=== PATIENT | female | born 1960 | race Caucasian/White ===

== ENCOUNTER 2016-05-26 12:24 | Outpatient (CLI) | payer BC | END 2016-05-26 12:25 | disposition home or self-care (01) | DX: E78.1 Pure hyperglyceridemia (principal) ==

== ENCOUNTER 2017-01-19 08:00 | Outpatient (CLI) | payer BC ==
[2017-01-19 13:09] LABS: CALCIUM 9.5 mg/dL (8.5-10.3); POTASSIUM 3.5 mmol/L (3.5-5.0)
[2017-01-19 13:46] LABS: ALBUMIN/GLOBULIN RATIO 1.3 (1.0-2.2); BILIRUBIN,TOTAL 1.5 mg/dL (0.2-1.0); CREATININE 0.8 mg/dL (0.4-1.0); TOTAL PROTEIN 7.5 g/dL (6.7-8.2)
== END 2017-01-19 08:01 | disposition home or self-care (01) ==
LOC: LAB.WCP 08:00
PROVIDERS: ATTEND Family Medicine
DX: R94.5 Abnormal results of liver function studies (principal)
CPT/HCPCS: 36415; 80053; 82977; 86704; 86803; 87340

== ENCOUNTER 2017-02-10 15:32 | Outpatient (CLI) | payer BC ==
--- NOTE | 2017-02-12 10:11 | Mammography Report ---
DIGITAL BILATERAL SCREENING MAMMOGRAM: 02/10/2017 COMPARISON STUDY: Mammogram 10/19/2015. INDICATION: Screening mammography. TECHNIQUE: Routine CC and MLO projections were obtained of the breasts. FINDINGS: Scattered fibroglandular tissue is present within the breasts. There are no dominant randi s, suspicious microcalcifications, or secondary signs of malignancy. In comparison to the previous st udies, there are no significant changes. ASSESSMENT: NO MAMMOGRAPHIC EVIDENCE OF MALIGNANCY. NO SIGNIFICANT INTERVAL CHANGES. RECOMMENDATION: Screening mammography is recommended annually. BIRADS category 1 - negative. STANDARD QUALIFYING STATEMENTS 1. This examination was reviewed with the aid of Computed-Aided Detection (CAD). 2. A negative or benign imaging report should not delay biopsy if clinically suspicious findings are present. Consider surgical consultation if warranted. More than 5% of cancers are not identified by i maging. 3. Dense breasts may obscure an underlying neoplasm. JOB #: [id number] EXT JOB #:[id number]
== END 2017-02-10 15:33 | disposition home or self-care (01) ==
LOC: DI 15:32
PROVIDERS: ATTEND Family Medicine
DX: Z12.31 Encounter for screening mammogram for malignant neoplasm of breast (principal)
CPT/HCPCS: 77067

== ENCOUNTER 2017-02-16 15:11 | Outpatient (CLI) | payer BC | END 2017-02-16 15:12 | disposition home or self-care (01) | LOC: SC 15:11 | PROVIDERS: ATTEND Nurse Practitioner Family | DX: G47.30 Sleep apnea, unspecified (principal); R53.83 Other fatigue; G47.8 Other sleep disorders; R06.83 Snoring; G47.00 Insomnia, unspecified | CPT/HCPCS: 99203; 99212 ==

== ENCOUNTER 2017-05-14 10:16 | Day surgery (SDC) | payer BC ==
[~2017-05-14 10:16] MED LIST: ONDANSETRON 4 MG/2 ML VIAL ONE
[2017-05-14] MEDS ORDERED: LACTATED RINGERS 1,000 ML IV ONE (10:50)
[2017-05-14] MEDS ORDERED: MIDAZOLAM 2 MG/2 ML VIAL IVP ONE (12:40)
[2017-05-14] MEDS ORDERED: fentaNYL 100 MCG/2 ML VIAL IVP ONE (12:40)
[2017-05-14 14:09] VITALS: BP 126/70
== END 2017-05-14 10:17 | disposition home or self-care (01) ==
LOC: SDS 10:16
PROVIDERS: ATTEND Surgery
PROC: 0DBM8ZX Excision of Descending Colon, Via Natural or Artificial Opening Endoscopic, Diagnostic (ICD-10-PCS; principal; 2017-05-14 11:45)
DX: K57.30 Diverticulosis of large intestine without perforation or abscess without bleeding (principal); K64.8 Other hemorrhoids; K63.5 Polyp of colon
CPT/HCPCS: 45380; J7120

== ENCOUNTER 2017-05-20 15:07 | Outpatient (CLI) | payer BC | END 2017-05-20 15:08 | disposition home or self-care (01) | LOC: SC 15:07 | PROVIDERS: ATTEND Nurse Practitioner Family | DX: G47.30 Sleep apnea, unspecified (principal) | CPT/HCPCS: 99212; 99213 ==

== ENCOUNTER 2017-05-22 16:32 | Outpatient (CLI) | payer OTHER, BC ==
--- NOTE | 2017-05-23 16:18 | MRI Report ---
EXAM: MRI LUMBAR SPINE WITHOUT CONTRAST EXAM DATE: 05/22/2017 05:58 PM. CLINICAL HISTORY: Strain of muscle, fascia and tendon of lower back. COMPARISON: None. TECHNIQUE: Multiplanar, multisequence T1-weighted and fluid-sensitive sequences of the lumbar spine f rom T12 to S1 without contrast. Other: None. FINDINGS: There is straightening of the normal lumbar lordosis. The conus terminates at L1-L2 and is normal. There is Modic type I endplate degenerative change in the superior endplate of T12. There is a marked decrease in the height of the disk at T11-T12 with associated desiccation. There is a grade 1 nellie listhesis of L3 on L4 with associated mild decrease in the height of the disk and desiccation. There is a minimal decrease in the height of the disk at L4-L5 with a minimal to mild degree of desiccation . The abdominal aorta is of normal caliber. The kidneys are without evidence of hydronephrosis. There i s no significant atrophy of the paraspinal musculature or the psoas musculature. L1-L2: There is no significant disk bulge, central or foraminal stenosis. There is minimal right-side d facet arthropathy. L2-L3: There is a punctate hyperintensity associated with the facet on the right side at L2-L3 likely reflecting a minimal synovial cyst. Otherwise remainder of the level is normal. L3-L4: There is a grade 1 anterolisthesis of L3 on L4. There is a minimal pseudo-bulge abutting the s ac producing a minimal central canal stenosis. There is minimal bilateral facet arthropathy. There is mild neural foraminal narrowing bilaterally. L4-L5: There is a grade 1 anterolisthesis of L4 on L5. There is a minimal pseudobulge abutting the sa c producing a minimal central canal stenosis. There is mild bilateral facet arthropathy. There is mil d neural foraminal narrowing bilaterally. L5-S1: There is minimal right facet arthropathy. There is no significant foraminal stenosis. IMPRESSION: 1. There is a grade 1 anterolisthesis of L3 on L4 with associated minimal pseudobulge producing a min imal central canal stenosis. 2. Likewise, there is a grade 1 anterolisthesis of L4 on L5 with minimal pseudobulge producing a mini mal central canal stenosis. Comment: The following findings are so common in adults without low back pain that while we report th eir presence, they must be interpreted with caution and in the context of the clinical situation. (Re laci Hunter et al, Spine 2001) Prevalence of findings in patients without low back pain: Disk degeneration (any evidence): 92% Disk desiccation/T2 signal loss: 83% Disk height loss: 56% Disk bulge: 64% Disk protrusion: 32% Annular tear/high intensity zone: 38% [facility] Referring Provider Line: [phone] SITE ID: [id number]
== END 2017-05-22 16:33 | disposition home or self-care (01) ==
LOC: DI 16:32
PROVIDERS: ATTEND Family Medicine
DX: S39.012D Strain of muscle, fascia and tendon of lower back, subsequent encounter (principal); M47.896 Other spondylosis, lumbar region; M47.897 Other spondylosis, lumbosacral region; M43.16 Spondylolisthesis, lumbar region; M51.86 Other intervertebral disc disorders, lumbar region
CPT/HCPCS: 72148

== ENCOUNTER 2019-10-17 07:32 | Outpatient (CLI) | payer BC ==
[2019-10-17 12:49] LABS: BASOPHILS # (AUTO) 0.1 10^3/uL (0.0-0.1); BASOPHILS % (AUTO) 0.8 %; EOSINOPHILS # (AUTO) 0.2 10^3/uL (0.0-0.7); HGB - HEMOGLOBIN 14.3 g/dL (12.0-16.0); LYMPHOCYTES # (AUTO) 2.4 10^3/uL (1.5-3.5); LYMPHOCYTES % (AUTO) 29.7 %; MEAN CORPUSCULAR HEMOGLOBIN 30.1 pg (27.0-31.0); MEAN CORPUSCULAR HGB CONC 32.1 g/dL (32.0-36.0); MEAN CORPUSCULAR VOLUME 93.7 fL (81.0-99.0); MEAN PLATELET VOLUME 10.4 fL (7.9-10.8); MONOCYTES # (AUTO) 0.6 10^3/uL (0.0-1.0); MONOCYTES % (AUTO) 7.3 %; NEUTROPHILS # (AUTO) 4.7 10^3/uL (1.5-6.6); NEUTROPHILS % (AUTO) 58.8 %; PLT - PLATELET COUNT 274 10^3/uL (130-450); RED BLOOD COUNT 4.75 10^6/uL (4.20-5.40); RED CELL DISTRIBUTION WIDTH 12.6 % (12.0-15.0)
[2019-10-17 13:02] LABS: ALBUMIN 4.2 g/dL (3.2-5.5); ALBUMIN/GLOBULIN RATIO 1.3 (1.0-2.2); BILIRUBIN,TOTAL 0.7 mg/dL (0.2-1.0); CREATININE 0.7 mg/dL (0.4-1.0); TOTAL PROTEIN 7.4 g/dL (6.7-8.2)
== END 2019-10-17 23:59 | disposition home or self-care (01) ==
LOC: LAB.WCP 07:32
PROVIDERS: ATTEND Family Medicine
DX: R94.5 Abnormal results of liver function studies (principal)
CPT/HCPCS: 36415; 80053; 85025

== ENCOUNTER 2019-10-26 15:00 | Outpatient (CLI) | payer BC | END 2019-10-26 23:59 | disposition home or self-care (01) | LOC: LAB.WCP 15:00 | PROVIDERS: ATTEND Family Medicine | DX: Z00.00 Encounter for general adult medical examination without abnormal findings (principal); Z11.59 Encounter for screening for other viral diseases | CPT/HCPCS: 81599 ==

== ENCOUNTER 2020-02-13 14:45 | Outpatient (CLI) | payer BC ==
--- NOTE | 2020-02-14 15:48 | Mammography Report ---
BILATERAL DIGITAL SCREENING MAMMOGRAM 3D/2D: 02/13/2020 CLINICAL: Routine screening. Comparison is made to exams dated: 02/10/2017 mammogram, 10/19/2015 mammogram, and 10/17/2014 mammogram - [facility]. The tissue of both breasts is predominantly fatty. No significant masses, calcifications, or other findings are seen in either breast. There has been no significant interval change. IMPRESSION: NEGATIVE There is no mammographic evidence of malignancy. A 1 year screening mammogram is recommended. This exam was interpreted at Station ID: [id number]. NOTE: For mammograms, a report in lay terms will be sent to the patient. Approximately 15% of breast malignancies will not be visualized mammographically. In the management of a palpable breast mass, a negative mammogram must not discourage biopsy of a clinically suspicious lesion. Electronically Signed By: Jenae cole/penrad:02/13/2020 16:55:02 ACR BI-RADS Category 1: Negative 3341F PARENCHYMAL PATTERN: (F) - The breast(s) demonstrate(s) diffuse fatty replacement. BI-RADS CATEGORY: (1) - 1 RECOMMENDATION: (ANNUAL) - Recommend routine annual screening mammography. [id number] 1 year screening LATERALITY: (B)
== END 2020-02-13 14:46 | disposition home or self-care (01) ==
LOC: DI.N 14:45
DX: Z12.31 Encounter for screening mammogram for malignant neoplasm of breast (principal)
CPT/HCPCS: 77063; 77067

== ENCOUNTER 2020-03-16 15:15 | Emergency (ER) | payer BC ==
[2020-03-16] MEDS ORDERED: HYDROcod/ACETAM 5/325 MG TABLET PO STA (15:39)
--- NOTE | 2020-03-16 15:51 | ED Physician Documentation ---
PD HPI UPPER EXT INJURY - Stated complaint Stated Complaint: GLF/LT ARM PX - Chief complaint Chief Complaint: Trauma Ext - History obtained from History obtained from: Patient - History of Present Illness Location: Left, Shoulder Type of injury: Fall Where injury occurred: Home Timing - onset: How many days ago (2) Timing - duration: Days (2) Timing - details: Gradual onset Pain level max: 8 Pain level now: 8 Improved by: Rest, Ice, Immobilization Worsened by: Moving, Palpating Associated symptoms: No: Weakness, Numbness, Tingling, Swelling Contributing factors: No: Anticoagulated Recently seen: Not recently seen - Additonal information Additional information: Patient with a fall 2 days ago, now complaining of left shoulder pain. Worse with movement, better with rest. No head, neck, back pain. No numbness or tingling. Review of Systems Constitutional: denies: Fever, Chills Cardiac: denies: Chest pain / pressure Respiratory: denies: Cough GI: denies: Vomiting, Diarrhea Skin: denies: Rash Musculoskeletal: denies: Neck pain, Back pain Neurologic: denies: Focal weakness, Numbness, Headache PD PAST MEDICAL HISTORY - Past Medical History Cardiovascular: None Respiratory: None Endocrine/Autoimmune: None GI: None : None HEENT: None Psych: Anxiety Musculoskeletal: Osteoarthritis Derm: Other - Past Surgical History General: Cholecystectomy Ortho: Other /HOUSEKEEPING/LAUNDRY: section - Present Medications Home Medications: Ambulatory Orders Medication Instructions Recorded Confirmed Loratadine [Claritin] 10 mg PO 05/14/17 Cyclobenzaprine [Flexeril] 10 mg PO TID PRN #20 tablet 03/16/20 HYDROcod/ACETAM 5/325 [[place] 5/325] 1 - 2 ea PO Q6H PRN #14 tablet 03/16/20 Ibuprofen [Motrin] 800 mg PO Q8H PRN #30 tablet 03/16/20 - Allergies Allergies/Adverse Reactions: Allergies Allergy/AdvReac Type Severity Reaction Status Date / Time diclofenac [From Voltaren] Allergy Unknown Verified 03/16/20 15:21 hydrogen peroxide Allergy Rash Verified 03/16/20 15:21 indomethacin [From Indocin] AdvReac Mild Headache Verified 03/16/20 15:21 alprazolam [From Xanax] AdvReac Unknown Verified 03/16/20 15:21 shellfish derived AdvReac Nausea Verified 03/16/20 15:21 PD ED PE NORMAL - Vitals Vital signs reviewed: Yes - General General: Alert and oriented X 3, No acute distress - HEENT HEENT: Moist mucous membranes - Neck Neck: Supple, no meningeal sign - Cardiac Cardiac: RRR - Respiratory Respiratory: No respiratory distress, Clear bilaterally - Abdomen Abdomen: Soft, Non tender, Non distended - Derm Derm: Warm and dry - Extremities Extremities: Other (TTP L glenohumeral joint, diffuse. NVI. limited external, internal rotation. limited extension, abduction 2/2 pain. only about 10% ROM present. o/w normal exam of the arm. ) - Neuro Neuro: Alert and oriented X 3 Results - Vitals Vitals: Vital Signs - 24 hr 03/16/20 15:22 Temperature 37.0 C Heart Rate 81 Respiratory 19 Rate Blood Pressure 158/97 H O2 Saturation 100 Oxygen O2 Source Room air - Rads (name of study) L shoulder xray Radiology: Prelim report reviewed, EMP read contemporaneously, See rad report (no acute abnormality) PD MEDICAL DECISION MAKING - ED course Complexity details: reviewed results, re-evaluated patient (No acute findings on x-ray. Placed in a sling for comfort. Will place on pain medication for home. Neurovascularly intact. Likely rotator cuff tendinitis versus slight tear. Encouraged gentle stretching at home as well. Patient counseled regarding signs and symptoms for which I believe and urg), considered differential, d/w patient Departure - Departure Disposition: 01 Home, Self Care Clinical Impression: Left shoulder strain Qualifiers: Encounter type: initial encounter Qualified Code(s): S46.912A - Strain of unspecified muscle, fascia and tendon at shoulder and upper arm level, left arm, initial encounter Condition: Good Instructions: ED Tendinitis Rotator Cuff Follow-Up: Sunny Cooper DO [Primary Care Provider] - Within 1 week Prescriptions: Cyclobenzaprine [Flexeril] 10 mg PO TID PRN #20 tablet PRN Reason: Spasms Ibuprofen [Motrin] 800 mg PO Q8H PRN #30 tablet PRN Reason: PAIN &/OR FEVER HYDROcod/ACETAM 5/325 [[place] 5/325] 1 - 2 ea PO Q6H PRN #14 tablet PRN Reason: Pain Comments: Wear the sling as needed for pain. Return if you worsen. Follow-up with your doctor for further care. Continue gentle stretching as this will help the shoulder heal as well. Do not drink alcohol or drive while on narcotic pain medicine. Note that many narcotic pain relievers also contain tylenol/acetaminophen. Please ensure that your total dose of acetaminophen from all sources does not exceed 3 grams (3000mg) per day. You may constipated on this medication, take a stool softener such as "Colace" twice a day while you are on it. Also recommend a [id number] laxative such as senna or MiraLAX any day that you do not have a bowel movement. If you received narcotic pain medication in the emergency department, do not drive or operate machinery for the next 24 hours.
--- NOTE | 2020-03-16 16:16 | XRAY Report ---
PROCEDURE: Shoulder 3 View LT INDICATIONS: fall, L shoulder pain TECHNIQUE: 3 views of the shoulder were acquired. COMPARISON: None. FINDINGS: Bones: No fractures or dislocations. Moderate acromioclavicular joint and glenohumeral joint osteoa rthritic changes are seen. No suspicious bony lesions. Visualized ribs appear intact. Soft tissues: No suspicious soft tissue calcifications. IMPRESSION: Moderate left shoulder joint osteoarthritis. No acute fracture or dislocation. Reviewed by: Jaylan Rodriguez MD on 03/16/2020 4:15 PM PST Approved by: Jaylan Rodriguez MD on 03/16/2020 4:15 PM PST Station ID: [id number]
[2020-03-16 16:38] VITALS: BP 130/79
== END 2020-03-16 16:36 | disposition home or self-care (01) ==
LOC: ED 15:15
DX: S46.912A Strain of unspecified muscle, fascia and tendon at shoulder and upper arm level, left arm, initial encounter (principal); W19.XXXA Unspecified fall, initial encounter; Y92.009 Unspecified place in unspecified non-institutional (private) residence as the place of occurrence of the external cause; M19.012 Primary osteoarthritis, left shoulder
CPT/HCPCS: 73030; 99283; 99284; A9270